=== PATIENT | male | born 1985 | race Two or more races ===

== ENCOUNTER 2017-08-24 00:42 | Emergency (ER) | payer OTHER ==
[~2017-08-24] VITALS: Ht 170.2 cm; Wt 106.6 kg
[2017-08-24 01:00] VITALS: BP 137/75
[2017-08-24] MEDS ORDERED: IBUPROFEN600 MG ORAL (02:11)
[2017-08-24 02:30] VITALS: BP 132/76
[2017-08-24 02:32] VITALS: BP 132/76
--- NOTE | 2017-08-24 03:39 | Emergency Room Report ---
History of Present Illness General Chief Complaint: Pain Source: Patient Present Illness HPI 31-year-old male history of left anterior cruciate ligament tear status post surgery several years ago, presenting with left knee pain. Patient states that he was at work, slipped, fell onto left knee. Did not hit his head no LOC. Pain is worse with left knee movement however is able to ambulate with slight limp Allergies: Coded Allergies: No Known Allergies (Unverified , 08/24/17) Patient History Past Medical History: see triage record Past Surgical History: none Pertinent Family History: none Reviewed Nursing Documentation: PMH: Agreed, PSxH: Agreed Nursing Documentation-PMH Past Medical History: No Stated History Review of Systems All Other Systems: negative except mentioned in HPI Physical Exam Vital Signs Date Time Temp Pulse Resp B/P (MAP) Pulse Ox O2 Delivery O2 Flow Rate FiO2 08/24/17 00:47 98.2 88 15 137/75 97 Room Air Sp02 EP Interpretation: reviewed, normal General Appearance: normal inspection, well appearing, no apparent distress, alert, GCS 15, non-toxic Head: normocephalic, atraumatic Eyes: bilateral eye normal inspection, bilateral eye PERRL, bilateral eye EOMI ENT: normal ENT inspection, normal pharynx, normal voice, moist mucus membranes Neck: normal inspection, full range of motion, supple Respiratory: normal inspection, lungs clear, normal breath sounds, no respiratory distress, no retraction, no wheezing, speaking full sentences, chest symmetrical Cardiovascular #1: normal inspection, regular rate, rhythm, no edema, normal capillary refill Cardiovascular #2: 2+ radial (R), 2+ radial (L) Gastrointestinal: normal inspection, non tender, soft, non-distended, no guarding Genitourinary: no CVA tenderness Musculoskeletal: other - Left knee anterior aspect tender to palpation, valgus and Bro anterior or posterior test negative, patient walking with slight limp , no tenderness to anterior tibia Neurologic: normal inspection, alert, oriented x3, responsive, motor strength/ tone normal, sensory intact, normal gait, speech normal Psychiatric: normal inspection, judgement/insight normal, memory normal Skin: normal inspection, normal color, no rash, warm/dry, well hydrated, normal turgor Medical Decision Making Diagnostic Impression: Primary Impression: Left knee pain ER Course 31-year-old male with left knee pain DDX: Contusion vs. fracture Plan: Pain control with motrin XR ER course: Patient reports improvement of pain with motrin X-ray negative Disposition: Patient is to be discharged home Patient educated to rest, ice, and elevate extremity and to avoid vigorous activity. Strict precautions discussed with patient on when to return to the emergency room including increased redness or swelling joints, increased pain/swelling of extremity, fever or chills, which could indicate severe illness. Patient is to follow up with their primary care doctor within 5 days. Patient also instructed to follow up with an orthopedic doctor if continuing to have mild/moderate pain as he may need further outpatient imaging. Patient agrees with plan. Please note that this Emergency Department Report was dictated using [employer] cutting machine operator technology software, occasionally this can lead to erroneous entry secondary to interpretation by the dictation equipment. Xray ordered: Left knee 3 view Indication: Pain EP Interpretation: Yes Interpretation: No dislocation, no soft tissue swelling, no fractures Impression: No acute disease Electronically signed by Jd Young MD Last Vital Signs Date Time Temp Pulse Resp B/P (MAP) Pulse Ox O2 Delivery O2 Flow Rate FiO2 08/24/17 02:32 98.2 82 16 132/76 97 Room Air Disposition: HOME, SELF-CARE Condition: Stable Scripts Ibuprofen* (MOTRIN*) 600 Mg Tablet 600 MG ORAL Q8H Y for For Pain, #30 TAB 0 Refills Prov: Jd Young M.D. 08/24/17 Referrals: NOT CHOSEN IPA/,REFERRING (PCP) Patient Instructions: Knee Pain, [id number] Additional Instructions: Please followup with an orthopedic surgeon in one week if not better Jd Young M.D. Aug 24, 2017 03:39
--- NOTE | 2017-08-24 10:25 | Diagnostic Imaging Report ---
Indication: PAIN Technique: 3 views of the left knee Comparison: None Findings:Surgical screws are seen within the knee, likely indicating prior anterior cruciate ligament repair. No acute fractures or dislocations. There are medial osteophytes. Joint spaces are preserved. Impression:No acute process This agrees with the preliminary interpretation provided by the emergency room physician
== END 2017-08-24 02:32 | disposition home or self-care (01) ==
LOC: EMR 01:02
DX: M25.562 Pain in left knee (principal); Z98.890 Other specified postprocedural states
CPT/HCPCS: 99283